=== PATIENT | male | born 1945 | race Caucasian/White ===

== ENCOUNTER 2022-02-15 13:28 | Observation (INO) ==
[2022-02-15] MEDS: ZOSYN VIAL 3.375 GRAMS 3.375 G in NS 100 ML IV 100 ML IV SCH ×2 (15:46→21:07)
[2022-02-15] MEDS: NS 1,000 ML IV 1,000 ML IV SCH (15:46)
[2022-02-15 16:10] VITALS: BMI 27.3
[2022-02-15 16:32] LABS: BASOPHILS # (AUTO) 0.1 X10^3/uL (0.0-0.1); BASOPHILS % (AUTO) 1.3 % (0.2-1.0); EOSINOPHILS # (AUTO) 0.8 x10^3/uL (0.0-0.2); EOSINOPHILS % (AUTO) 8.8 % (0.9-2.9); HEMATOCRIT 36.4 % (42.0-54.0); HEMOGLOBIN 12.5 g/dL (13.5-18.0); LYMPHOCYTES # (AUTO) 2.2 X10^3/uL (1.3-2.9); LYMPHOCYTES % (AUTO) 25.2 % (21.0-51.0); MEAN CORPUSCULAR HGB CONC 34.3 g/dL (33.0-35.0); MEAN CORPUSCULAR VOLUME 84.6 fL (80.0-100.0); MONOCYTES # (AUTO) 0.6 x10^3/uL (0.3-0.8); MONOCYTES % (AUTO) 7.3 % (0.0-13.0); NEUTROPHILS # (AUTO) 4.9 x10^3/uL (2.2-4.8); NEUTROPHILS % (AUTO) 57.4 % (42.0-75.0); RED CELL DISTRIBUTION WIDTH 13.4 % (11.6-16.5); WHITE BLOOD COUNT 8.6 X10^3/uL (3.6-10.0)
[2022-02-15 16:53] LABS: ALBUMIN 2.8 g/dL (3.4-5.0); CALCIUM 8.2 mg/dL (8.5-10.1); CARBON DIOXIDE 26.7 mmol/L (21-32); COR CA(FOR HYPOALB) 9.2 mg/dL (8.5-10.1); CREATININE 1.86 mg/dL (0.70-1.30); TOTAL PROTEIN 6.6 g/dL (6.4-8.2)
[2022-02-16] MEDS ORDERED: NS 250 ML IV 250 ML IV ONE (02:18)
[2022-02-16] MEDS ORDERED: NS 250 ML IV 250 ML IV PRN (05:22)
[2022-02-16] MEDS: NS 1,000 ML IV 1,000 ML IV SCH ×2 (05:23→17:19)
[2022-02-16] MEDS: ZOSYN VIAL 3.375 GRAMS 3.375 G in NS 100 ML IV 100 ML IV SCH ×3 (05:23→21:04)
[2022-02-16 06:18] LABS: BASOPHILS # (AUTO) 0.1 X10^3/uL (0.0-0.1); BASOPHILS % (AUTO) 1.2 % (0.2-1.0); EOSINOPHILS # (AUTO) 0.9 x10^3/uL (0.0-0.2); EOSINOPHILS % (AUTO) 10.2 % (0.9-2.9); HEMOGLOBIN 11.6 g/dL (13.5-18.0); LYMPHOCYTES # (AUTO) 2.6 X10^3/uL (1.3-2.9); LYMPHOCYTES % (AUTO) 28.6 % (21.0-51.0); MEAN CORPUSCULAR HEMOGLOBIN 29.3 pg (27.0-34.0); MEAN CORPUSCULAR HGB CONC 35.2 g/dL (33.0-35.0); MEAN CORPUSCULAR VOLUME 83.3 fL (80.0-100.0); MEAN PLATELET VOLUME 7.9 fL (7.4-11.0); MONOCYTES # (AUTO) 0.8 x10^3/uL (0.3-0.8); MONOCYTES % (AUTO) 8.3 % (0.0-13.0); NEUTROPHILS # (AUTO) 4.8 x10^3/uL (2.2-4.8); NEUTROPHILS % (AUTO) 51.7 % (42.0-75.0); RED BLOOD COUNT 3.96 X10^6/uL (4.7-6.0); RED CELL DISTRIBUTION WIDTH 13.3 % (11.6-16.5); WHITE BLOOD COUNT 9.2 X10^3/uL (3.6-10.0)
[2022-02-16 06:26] LABS: ALANINE AMINOTRANSFERASE 13 Units/L (12-78); ALBUMIN 2.6 g/dL (3.4-5.0); ALKALINE PHOSPHATASE 74 Units/L (46-116); ASPARTATE AMINO TRANSFERASE 16 Units/L (15-37); BLOOD UREA NITROGEN 25 mg/dL (7-18); CALCIUM 8.3 mg/dL (8.5-10.1); CARBON DIOXIDE 23.7 mmol/L (21-32); CHLORIDE 107 mmol/L (98-107); COR CA(FOR HYPOALB) 9.4 mg/dL (8.5-10.1); CREATININE 1.87 mg/dL (0.70-1.30); SODIUM 139 mmol/L (136-145); TOTAL PROTEIN 6.1 g/dL (6.4-8.2); eGFR NON BLACK RACES 37 (>60)
[2022-02-16] MEDS ORDERED: HYDROGEN PEROXIDE 3% ONE (09:42)
[2022-02-16] MEDS: BACTROBAN TOPICAL OINT TOP SCH ×2 (09:54→20:48)
[2022-02-16] MEDS ORDERED: FLONASE NASAL SPRAY ENOSTRIL PRN (10:42)
[2022-02-16] MEDS: FLOMAX PO SCH (11:06)
[2022-02-16] MEDS: COZAAR PO SCH (11:06)
[2022-02-16] MEDS: ASPIRIN EC 81 MG PO SCH (11:06)
[2022-02-16] MEDS: PriLOSEC PO SCH (11:07)
--- NOTE | 2022-02-16 13:20 | DR.UPDATE ---
H&P Update History and Physical Update: History and Physical reviewed and patient examined. Changes noted: Yes with the following: HAS BEEN SEEN IN THE OFFICE FOR TREATMENT OF CELLULITIS OF THE RIGHT LATERAL ANKLE. HE REPORTS THAT AREA STARTED AN INSECT BITE ABOUT TWO WEEKS AGO. SITE BECAME INFLAMMED AND PAINFUL WITH REDNESS EXTENDING TO THE FOOT AND LOWER LEG. HE WAS STARTED ON CIPRO 500MG PO BID ON 02/06/22. HE RETURNED TODAY FOR EVALUATION. SITE CONTINUED WITH MODERATE ERYTHEMA AND EDEMA DESPITE COMPLIANCE WITH MEDICATIONS. THERE IS AN OPEN WOUND WITH A MINIMAL AMOUNT OF DRAINAGE. WE ADMITTED PATIENT TO THE HOSPITAL FOR FURTHER EVALUATION AND TREAMTENT WITH IV ANTIBIOTICS. ON ARRIVAL, VITALS WERE: 97.8-63-20-99%-146/81. LABS WERE OBTAINED. WBC 8.6, RBC 4.30, HGB 12.5, HCT 36.4, SODIUM 139, POTASSIUM 4.0, CHLORIDE 105, BUN 26, CREATININE 1.86, GLUCOSE 113, CALCIUM 8.2, TOTAL BILI 0.10, AST 13, ALT 16, ALK PHOS 91, CRP 9.40, TOTAL PROTEIN 6.6, ALBUMIN 2.8. COVID-19 NEGATIVE. BLOOD AND WOUND CULTURES WERE SET UP. HE WAS STARTED ON NORMAL SALINE AT 80 ML/HR, ZOSYN 3.375G IV TID, BACTROBAN OINTMENT BID, AND HIS HOME MEDICATIONS WERE RESUMED. WE WILL CONSULT , GENERAL SURGEON, FOR EVALUATION OF WOUND. OTHERWISE, WE PLAN TO FOLLOW-UP WITH AM LABS AND WOUND CARE AND CONTINUE TO MONITOR. TIME SPENT ON CLINICAL ASSESSMENT, REVIWING LABS AND IMAGING, DECISION MAKING, AND DOCUMENTATION GREATER THAN 75 MINUTES. H&P Reviewed: Yes Patient was examined?: Yes
--- NOTE | 2022-02-16 13:34 | RAD ---
HISTORYCellulitisSTUDYRight ankle three viewsCOMPARISONNoneFINDINGSThere is soft tissue swelling involving the lower leg and ankle especially over the lateral malleolus. There is no evidence for fracture, bone destruction, infection or tibiotalar joint asymmetry.IMPRESSIONNonspecific soft tissue swelling. No osseous lesion identified.Electronically signed by: THIERNO CURTIS (Feb 16, 2022 13:32:19)
[2022-02-16] MEDS ORDERED: ZyrTEC TAB 10 MG PO SCH (21:00)
[2022-02-17] MEDS: ZOSYN VIAL 3.375 GRAMS 3.375 G in NS 100 ML IV 100 ML IV SCH (05:04)
[2022-02-17 05:21] LABS: BASOPHILS # (AUTO) 0.1 X10^3/uL (0.0-0.1); BASOPHILS % (AUTO) 1.3 % (0.2-1.0); EOSINOPHILS % (AUTO) 10.7 % (0.9-2.9); HEMATOCRIT 33.5 % (42.0-54.0); HEMOGLOBIN 11.6 g/dL (13.5-18.0); LYMPHOCYTES # (AUTO) 2.2 X10^3/uL (1.3-2.9); MEAN CORPUSCULAR HGB CONC 34.7 g/dL (33.0-35.0); MEAN CORPUSCULAR VOLUME 83.4 fL (80.0-100.0); MONOCYTES # (AUTO) 0.7 x10^3/uL (0.3-0.8); MONOCYTES % (AUTO) 7.3 % (0.0-13.0); NEUTROPHILS # (AUTO) 5.4 x10^3/uL (2.2-4.8); NEUTROPHILS % (AUTO) 57.7 % (42.0-75.0); RED BLOOD COUNT 4.01 X10^6/uL (4.7-6.0); RED CELL DISTRIBUTION WIDTH 13.3 % (11.6-16.5); WHITE BLOOD COUNT 9.4 X10^3/uL (3.6-10.0)
[2022-02-17 05:34] LABS: ALANINE AMINOTRANSFERASE 18 Units/L (12-78); ALBUMIN 2.6 g/dL (3.4-5.0); ALKALINE PHOSPHATASE 82 Units/L (46-116); ASPARTATE AMINO TRANSFERASE 15 Units/L (15-37); BLOOD UREA NITROGEN 23 mg/dL (7-18); CALCIUM 8.1 mg/dL (8.5-10.1); CARBON DIOXIDE 26.6 mmol/L (21-32); CHLORIDE 107 mmol/L (98-107); COR CA(FOR HYPOALB) 9.2 mg/dL (8.5-10.1); CREATININE 2.06 mg/dL (0.70-1.30); SODIUM 140 mmol/L (136-145); eGFR NON BLACK RACES 33 (>60)
[2022-02-17 08:58] VITALS: BP 155/78
[2022-02-17] MEDS: FLOMAX PO SCH (09:06)
[2022-02-17] MEDS: NS 1,000 ML IV 1,000 ML IV SCH (09:06)
[2022-02-17] MEDS: COZAAR PO SCH (09:06)
[2022-02-17] MEDS: ASPIRIN EC 81 MG PO SCH (09:06)
[2022-02-17] MEDS: PriLOSEC PO SCH (09:06)
[2022-02-17] MEDS: BACTROBAN TOPICAL OINT TOP SCH (09:07)
== END 2022-02-17 11:10 | disposition home or self-care (01) ==
LOC: MED/SURG
PROVIDERS: ADMIT Internal Medicine; ATTEND Internal Medicine
DX: S90.561A Insect bite (nonvenomous), right ankle, initial encounter; R79.82 Elevated C-reactive protein (CRP); E78.00 Pure hypercholesterolemia, unspecified; I10 Essential (primary) hypertension; Z20.822 Contact with and (suspected) exposure to COVID-19; L03.115 Cellulitis of right lower limb; W57.XXXA Bitten or stung by nonvenomous insect and other nonvenomous arthropods, initial encounter; Y92.9 Unspecified place or not applicable